=== PATIENT | male | born 1995 | race Caucasian/White ===

== ENCOUNTER 2016-08-10 21:49 | Emergency (ER) | payer SELFPAY ==
[2016-08-11] MEDS ORDERED: DIPHENHYDRAMINE HCL 50 MG/ML VIAL IV ONE (01:36)
[2016-08-11] MEDS ORDERED: PROCHLORPERAZINE EDISYLATE INJ 10 MG/2 ML VIAL IV ONE (01:36)
[2016-08-11] MEDS ORDERED: NORMAL SALINE 1000 ML 1,000 ML IV ONE (01:37)
--- NOTE | 2016-08-11 02:17 | ER Document Report ---
ED Headache - General Time seen by provider: 03:00 Mode of Arrival: Ambulatory Information source: Patient TRAVEL OUTSIDE OF THE [place] IN LAST 30 DAYS: No - HPI Patient complains to provider of: Headache Patient reports: Hx chronic headaches Onset: Other - see HPI Timing: Still present - General Chief Complaint: Headache Stated Complaint: HEADACHES Notes: Patient is a 21 year old male presenting to the emergency department complaining of a headache. Patient states he has had headaches that have been waxing and waning and sometimes everyday over the past 6 years. Patient states he takes ibuprofen and motrin for his headaches. Patient states his headache is in the front of his head, into his eyes, and is in the center of his neck. Patient states it is painful to move his neck sometimes. [facility]. Patient also has some nausea but denies any abdominal pain or other symptoms. 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 (VITALY VIVAR) - Related Data Allergies/Adverse Reactions: No Known Allergies Allergy (Unverified 08/10/16 22:57) Past Medical History - General Information source: Patient - Social History Smoking Status: Unknown if Ever Smoked Family History: None Patient has suicidal ideation: No Patient has homicidal ideation: No Musculoskeltal Medical History: Reports Other - bulging disc Review of Systems - Review of Systems Constitutional: No symptoms reported EENT: No symptoms reported Cardiovascular: No symptoms reported Respiratory: No symptoms reported Gastrointestinal: See HPI, Nausea. denies: Abdominal pain Genitourinary: No symptoms reported Male Genitourinary: No symptoms reported Musculoskeletal: No symptoms reported Skin: No symptoms reported Hematologic/Lymphatic: No symptoms reported Neurological/Psychological: See HPI, Headaches -: Yes All other systems reviewed and negative Physical Exam - Vital signs Interpretation: Normal - General General appearance: Appears well, Alert In distress: Mild - HEENT Head: Normocephalic, Atraumatic, Tenderness - tenderness to palpation to the base of the occiput, greater on the right than the left Eyes: Normal Pupils: PERRL Mucous membranes: Normal - Respiratory Respiratory status: No respiratory distress - Cardiovascular Rhythm: Regular Heart sounds: Normal auscultation - Abdominal Inspection: Normal Distension: No distension Bowel sounds: Normal Tenderness: Nontender Organomegaly: No organomegaly - Back Back: Normal, Nontender - Extremities General upper extremity: Normal inspection, Normal ROM, Normal strength General lower extremity: Normal inspection, Normal ROM, Normal strength - Neurological Neuro grossly intact: Yes Cognition: Normal Orientation: AAOx4 [place] Coma Scale Eye Opening: Spontaneous [place] Coma Scale Verbal: Oriented [place] Coma Scale Motor: Obeys Commands [place] Coma Scale Total: 15 Speech: Normal - Psychological Associated symptoms: Normal affect, Normal mood - Skin Skin Temperature: Warm Skin Moisture: Dry Course - Re-evaluation Re-evalutation: 08/11/16 Patient is a 21-year-old male who comes in complaining of headaches. Patient was initially amenable to a head CT and medication for his headache but then stated that he did not know if his insurance would pay for her he if he would have to pat a pocket. Patient was just like a prescription and and work note. Stable for discharge. Return if any worsening or concerning symptoms. (SORAYA NGUYEN) - Vital Signs Vital signs: Temp Pulse Resp BP Pulse Ox 97.7 F 57 L 16 114/61 98 08/11/16 03:26 08/11/16 03:26 08/11/16 03:26 08/11/16 03:26 08/11/16 03:26 Discharge - Discharge Clinical Impression: Headache Qualifiers: Headache type: unspecified Headache chronicity pattern: unspecified pattern Intractability: not intractable Qualified Code(s): R51 - Headache Condition: Stable Disposition: HOME, SELF-CARE Instructions: Headache ([facility]) Additional Instructions: Please follow-up with your Dr. regarding your recurring headaches, particularly for imaging. Prescriptions: Metoclopramide HCl [Reglan 10 mg Tablet] 1 - 2 tab PO ASDIR PRN #25 tablet PRN Reason: Ondansetron [Zofran Odt 4 mg Tablet] 1 - 2 tab PO Q4H PRN #15 tab.rapdis PRN Reason: For Nausea/Vomiting Forms: Return to Work Scribe Attestation: 08/11/16 05:35 I personally performed the services described in the documentation, reviewed and edited the documentation which was dictated to the scribe in my presence, and it accurately records my words and actions. (SORAYA NGUYEN) Scribe Documentation - Scribe Written by Scribe:: Dr. Nguyen ([facility])
[2016-08-11] MEDS ORDERED: ONDANSETRON ODT 4 MG TAB (6 TAB/DSPK) PO PRN (02:47)
[2016-08-11 03:41] VITALS: BP 114/61
== END 2016-08-11 03:30 | disposition home or self-care (01) ==
LOC: ER 21:49
DX: R51 Headache (principal); R11.0 Nausea
CPT/HCPCS: 99283

== ENCOUNTER 2017-06-10 16:00 | Emergency (ER) | payer OTHER ==
[2017-06-10 16:09] VITALS: BP 130/73
[2017-06-10] MEDS ORDERED: GUAIFENESIN 600 MG TABLET.SA PO ONE (17:08)
[2017-06-10] MEDS ORDERED: PSEUDOEPHEDRINE HCL 30 MG TABLET PO ONE (17:08)
[2017-06-10] MEDS ORDERED: IBUPROFEN 800 MG TABLET PO ONE (17:08)
[2017-06-10] MEDS ORDERED: LORATADINE 10 MG TABLET PO ONE (17:08)
--- NOTE | 2017-06-10 17:20 | ER Document Report ---
HPI - HPI Patient complains to provider of: Cough and cold symptoms congestion sore throat Onset: Yesterday Onset/Duration: Gradual Quality of pain: Achy, Other - Sore throat Severity: Moderate Pain Level: 3 Associated Symptoms: Chills, Earache, Rhinnorhea, Sinus pain/drainage, Sore throat, Other - Cough. denies: Headache Exacerbated by: Other - Cough Relieved by: Denies Similar symptoms previously: Yes Recently seen / treated by doctor: No - ROS ROS below otherwise negative: Yes - CONSTITUTIONAL Constitutional: REPORTS: Chills. DENIES: Fever - EENT EENT: REPORTS: Sore Throat, Ear Pain, Nasal Drainage-Clear, Congestion. DENIES : Eye problems - NEURO Neurology: DENIES: Headache, Weakness, Vision blurred, Dizzinesss / Vertigo - CARDIOVASCULAR Cardiovascular: DENIES: Chest pain - RESPIRATORY Respiratory: REPORTS: Coughing. DENIES: Trouble Breathing - GASTROINTESTINAL Gastrointestinal: DENIES: Abdominal Pain, Nausea, Patient vomiting, Diarrhea, Constipation, Black / Bloody Stools - URINARY Urinary: DENIES: Dysuria, Urgency, Frequency - MUSCULOSKELETAL Musculoskeletal: REPORTS: Back Pain - Body aches. DENIES: Extremity pain, Neck Pain, Swelling - DERM Skin Color: Normal Skin Problems: None Past Medical History - General Information source: Patient - Social History Smoking Status: Former Smoker Cigarette use (# per day): No Chew tobacco use (# tins/day): Yes - "dips" Smoking Education Provided: No Frequency of alcohol use: Social Drug Abuse: None Occupation: Due to Lives with: Alone Family History: CAD, COPD, DM, Hyperlipidemia, Hypertension. denies: CVA, Malignancy, Thyroid Disfunction Patient has suicidal ideation: No Patient has homicidal ideation: No - Past Medical History Cardiac Medical History: Reports: None Pulmonary Medical History: Reports: None EENT Medical History: Reports: None Neurological Medical History: Reports: None Endocrine Medical History: Reports: None Renal/ Medical History: Reports: None Malignancy Medical History: Reports None GI Medical History: Reports: None Musculoskeltal Medical History: Reports None Skin Medical History: Reports None Psychiatric Medical History: Reports: Hx Depression - anxiety Traumatic Medical History: Reports: None Past Surgical History: Reports: Hx Oral Surgery - wisdom teeth - Immunizations Hx Diphtheria, Pertussis, Tetanus Vaccination: Yes Vertical Provider Document - CONSTITUTIONAL Agree With Documented VS: Yes Exam Limitations: No Limitations General Appearance: WD/WN, No Apparent Distress - INFECTION CONTROL TRAVEL OUTSIDE OF THE [place] IN LAST 30 DAYS: No - HEENT HEENT: Atraumatic, Normocephalic, PERRLA Notes: Purulent nasal drainage with swelling to the nasal turbinates, postnasal drip, no tonsillar hypertrophy, and no exudates. - NECK Neck: Normal Inspection - RESPIRATORY Respiratory: Breath Sounds Normal, No Respiratory Distress. negative: Chest Non -Tender, Rales, Rhonchi, Wheezing O2 Sat by Pulse Oximetry: 97 - CARDIOVASCULAR Cardiovascular: Regular Rate, Regular Rhythm - MUSCULOSKELETAL/EXTREMETIES Musculoskeletal/Extremeties: MAEW, FROM, Non-Tender - NEURO Level of Consciousness: Awake, Alert, Appropriate Motor/Sensory: No Motor Deficit, No Sensory Deficit - DERM Integumentary: Warm, Dry, No Rash Course - Re-evaluation Re-evalutation: 06/10/17 17:54 This patient was treated with Claritin and Sudafed Mucinex and ibuprofen. He was given instructions on use of these at home for his cough and cold symptoms. Patient signs and symptoms were consistent with upper respiratory infection and he was instructed to follow-up with his primary doctor. - Vital Signs Vital signs: Temp Pulse Resp BP Pulse Ox 98.5 F 73 16 130/73 H 97 06/10/17 16:06 06/10/17 16:06 06/10/17 16:06 06/10/17 16:06 06/10/17 16:06 Discharge - Discharge Clinical Impression: URI (upper respiratory infection) Qualifiers: URI type: unspecified URI Qualified Code(s): J06.9 - Acute upper respiratory infection, unspecified Condition: Stable Disposition: HOME, SELF-CARE Additional Instructions: UPPER RESPIRATORY ILLNESS: You have a viral infection of the respiratory passages -- a "cold." This common infection causes nasal congestion, drainage, and often sore throat and cough. It is highly contagious. The disease usually lasts about 10 to 14 days. There is no "cure" for the viral infection -- it must run its course. If there is a complication, such as bacterial infection in the nose, sinuses, middle ear, or bronchial tubes, antibiotics may be required. The antibiotics won't affect the virus. Drink plenty of fluids. A humidifier may help. An expectorant medication or decongestant may make you more comfortable. Use acetaminophen or ibuprofen for fever or aches. See the doctor if fever persists over two days, if there is any significant worsening of your symptoms, or if you simply fail to improve as expected. Claritin and Sudafed Mucinex and ibuprofen given in the emergency room. These are all nhas-zhe-nduiljd medications that she can buy at the pharmacist. They stated that she will actually have to ask the pharmacist for the medication. DECONGESTANT MEDICATION: A decongestant medicine has been prescribed. Often this medicine is combined in the same tablet with an antihistamine or expectorant. This type of medicine is helpful in treating a bad cold or sinus condition, as well as in treatment of the nasal congestion of hay fever. It is not of much benefit for lung infections. Decongestant medicines are related to stimulants. They can cause an increase in blood pressure and heart rate. Persons with heart disease and high blood pressure should not take decongestants without discussing this with the physician. If you develop palpitations, chest pain, headache, or tremors, stop the medicine and consult your physician. COUGH-SUPPRESSANT & EXPECTORANT MEDICATION: You are to use a cough medication as needed for relief of symptoms. This medicine is a combination of an expectorant (to make the mucous thinner and more easily "coughed up") and a cough suppressant (to reduce the frequency of coughing). The cough-suppressant medicine is related to narcotics. You may experience mild nausea and sleepiness. Some patients who are very sensitive to narcotics may have stomach pain from this medicine. Taking the medicine with food reduces these side effects. Do not drive or work with machinery until you know how this medicine affects you. The expectorant should have no side effects. Iodine-containing expectorants (such as organidin) should not be taken by persons with active thyroid disease unless approved by your doctor. Call the doctor if you develop shortness of breath, hives, rash, itching, lightheadedness, or severe nausea and vomiting USE OF ACETAMINOPHEN (Tylenol): Acetaminophen may be taken for pain relief or fever control. It's much safer than aspirin, offering a wider range of "safe" dosages. It is safe during . Some brand names are Tylenol, Panadol, Datril, Anacin 3, Tempra, and Liquiprin. Acetaminophen can be repeated every four hours. The following are maximum recommended dosages: >89 pounds or adults 650 mg to 900 mg Acetaminophen can be repeated every four hours. Maximum dose not to exceed 4000 mg a day. Salt and soda solution 1 quart of water 1 tablespoon of salt 1 teaspoon of baking soda Mixed 3 ingredients together and boil for 1 minute Placed in a covered quart jar Use 1/2 ounce of cold solution to gargle 3 times a day FOLLOW-UP CARE: If you have been referred to a physician for follow-up care, call the physician s office for an appointment as you were instructed or within the next two days. If you experience worsening or a significant change in your symptoms, notify the physician immediately or return to the Emergency Department at any time for re-evaluation. [facility] in symptoms or concerns. Forms: Elevated Blood Pressure
== END 2017-06-10 17:21 | disposition home or self-care (01) ==
LOC: ER 16:00
DX: J02.9 Acute pharyngitis, unspecified (principal); R05 Cough; R68.83 Chills (without fever); J34.89 Other specified disorders of nose and nasal sinuses; H92.09 Otalgia, unspecified ear; R09.82 Postnasal drip; M54.9 Dorsalgia, unspecified; Z72.0 Tobacco use
CPT/HCPCS: 99283

== ENCOUNTER 2017-09-06 17:51 | Emergency (ER) | payer OTHER ==
[2017-09-06] MEDS ORDERED: KETOROLAC TROMETHAMINE INJ/PF 30 MG/1 ML SDV IM ONE (18:14)
--- NOTE | 2017-09-06 18:20 | ER Document Report ---
HPI - HPI Pain Level: 4 Notes: Patient is a 22-year-old male with no significant past medical history presents ED complaining of right shoulder pain status post injury yesterday while playing football. Patient states that he was making a tackle when he fell and landed on an outstretched arm. Patient states that he heard a pop in his shoulder. Patient states that he has had difficulty with abduction and flexion at the shoulder since then. Patient has not noticed any bruising or swelling otherwise. He has not had any numbness or tingling. Denies any drug allergies. Denies any IV drug use. Denies any headache, fever, head injury, neck pain, changes in vision/speech/mentation/hearing, URI, sore throat, chest pain, palpitations, syncope, cough, shortness of breath, wheeze, dyspnea, abdominal pain, nausea/vomiting/diarrhea, urinary retention, dysuria, hematuria , loss of control of bowel or bladder, numbness/tingling, muscle paralysis/ weakness, or rash. - ROS Systems Reviewed and Negative: Yes All other systems reviewed and negative Past Medical History - Social History Smoking Status: Never Smoker Family History: CAD, COPD, DM, Hyperlipidemia, Hypertension. denies: CVA, Malignancy, Thyroid Disfunction Renal/ Medical History: Denies: Hx Peritoneal Dialysis Psychiatric Medical History: Reports: Hx Depression - anxiety Past Surgical History: Reports: Hx Oral Surgery - wisdom teeth - Immunizations Hx Diphtheria, Pertussis, Tetanus Vaccination: Yes Vertical Provider Document - CONSTITUTIONAL Agree With Documented VS: Yes Notes: PHYSICAL EXAMINATION: GENERAL: Well-appearing, well-nourished and in no acute distress. A&Ox4 NECK: Normal range of motion, supple without lymphadenopathy. No rigidity. No midline tenderness. Spurling negative. LUNGS: Breath sounds clear to auscultation bilaterally and equal. No wheezes rales or rhonchi. HEART: Regular rate and rhythm without murmurs, rubs, gallops. Musculoskeletal: Rt shoulder: LROM to passive/active. Strength 4+/5. No deficits noted. + mild tenderness to the anterolateral shoulder. + mild deficits noted to the RC cuff with resisted empty can, internal/external rotation. N/V intact distal. Back: FROM to passive/active. Strength 5+/5. No vertebral point tenderness, stepoffs, or deformities. No other bony tenderness or ecchymosis. Extremities: No cyanosis, clubbing, or edema b/l. Peripheral pulses 2+. Capillary refill less than 2 seconds. NEUROLOGICAL: Normal speech, normal gait. Normal sensory, motor exams. Reflexes 2+ b/l. PSYCH: Normal mood, normal affect. SKIN: Warm, Dry, normal turgor, no rashes or lesions noted. - INFECTION CONTROL TRAVEL OUTSIDE OF THE [place] IN LAST 30 DAYS: No - RESPIRATORY O2 Sat by Pulse Oximetry: 96 Course - Re-evaluation Re-evalutation: 09/06/17 18:39 Patient is an afebrile, well-hydrated, 22-year-old male who presents the ED with acute right shoulder pain, suspect possible internal involvement. Vitals are stable. PE is otherwise unremarkable for any neurovascular compress, obvious tendon/ligament rupture, obvious fracture/dislocation, septic joint. See x-ray result which was unremarkable for any acute pathology. Toradol given today. Patient was requesting a narcotic medication for his pain, which I told him is not warranted at this time based on H&P, and without objective findings. Patient verbalized understanding to this. Recommend he consult with orthopedics and schedule an appointment for further evaluation and management. Recheck with your PCM in 1 week as well. Return to the ED with any worsening/ concerning symptoms otherwise as reviewed discharge. Sling was provided today. Patient is in agreement. - Vital Signs Vital signs: Temp Pulse Resp BP Pulse Ox 99.3 F 97 125/79 96 09/06/17 17:55 09/06/17 17:55 09/06/17 17:55 09/06/17 17:55 Discharge - Discharge Clinical Impression: Right shoulder pain Qualifiers: Chronicity: acute Qualified Code(s): M25.511 - Pain in right shoulder Condition: Stable Disposition: HOME, SELF-CARE Instructions: Exercise Program for the Shoulder ([facility]), Shoulder Injury ([facility]), Temporary Sling ([facility]) Additional Instructions: Rest, Ice, Compression, Elevation Use sling as directed Tylenol/ibuprofen as needed Light stretches daily Strength exercises as able Moist heat and massage may help F/u with your PCP in 3-5 days for a recheck Call and schedule an appointment with orthopedics for further evaluation and management, consider consult with physical therapy as well. Return to the ED with any worsening symptoms and/or development of fever, headache, chest pain, palpitations, syncope, shortness of breath, trouble breathing, abdominal pain, n/v/d, muscle weakness/paralysis, numbness/tingling, swelling, redness, or other worsening symptoms that are concerning to you. Prescriptions: Naproxen 500 mg PO BID PRN #30 tablet PRN Reason: Referrals: [facility] ([facility]) [Provider Group] - Follow up as needed
--- NOTE | 2017-09-06 18:35 | RADIOLOGY REPORT (SQ) ---
EXAM DESCRIPTION: SHOULDER RIGHT 2 OR MORE VIEWS COMPLETED DATE/TIME: 09/06/2017 6:26 pm REASON FOR STUDY: right shoulder pain COMPARISON: None. NUMBER OF VIEWS: Three views. TECHNIQUE: Internal rotation, external rotation, and Y view images acquired of the right shoulder. LIMITATIONS: None. FINDINGS: MINERALIZATION: Normal. BONES: No acute fracture or dislocation. No worrisome bone lesions. JOINTS: No dislocation. VISUALIZED LUNGS AND RIBS: No pneumothorax. No rib fracture. SOFT TISSUES: No radiopaque foreign body. OTHER: No other significant finding. IMPRESSION: NEGATIVE STUDY OF THE RIGHT SHOULDER. NO RADIOGRAPHIC EVIDENCE OF ACUTE INJURY. TECHNICAL DOCUMENTATION: JOB ID: [id number] [employer]- All Rights Reserved
[2017-09-06 19:10] VITALS: BP 115/65
== END 2017-09-06 19:15 | disposition home or self-care (01) ==
LOC: ER 17:51
DX: M25.511 Pain in right shoulder (principal)
CPT/HCPCS: 99283; 96372; 73030; J1885

== ENCOUNTER → 2018-01-05 | Day surgery (SDC) | payer OTHER ==
--- NOTE | 2018-01-05 10:33 | RADIOLOGY REPORT (SQ) ---
EXAM DESCRIPTION: ARTHRO SHOULDER INJECTION COMPLETED DATE/TIME: 01/05/2018 10:20 am REASON FOR STUDY: SUPERIOR GLENOID LABRUM LESION OF RIGHT SHOULDER, INIT S43.431A SUPERIOR GLENOID LABRUM LESION OF RIGHT SHOULDER, I COMPARISON: None. FLUOROSCOPY TIME: 0.1 minutes 1 images saved to PACS. LIMITATIONS: None. PROCEDURE: Procedure, risks, benefits and alternatives explained to patient who then gave written co nsent. The right shoulder was marked and a time out was called for correct procedure verification. P osterior entry site marked using fluoroscopic guidance. Shoulder prepped and draped using sterile te chnique. Local anesthesia achieved using 1% lidocaine injection. Hypodermic needle introduced into the joint space under direct fluoroscopic visualization. Non-ionic contrast instilled to confirm intr a-articular position. Dilute gadolinium solution then injected. Needle removed and entry site covere d with sterile bandage. No immediate complications noted. TECHNIQUE: Digital images acquired during fluoroscopy and stored on PACS. Patient immediately take n to the MR suite for additional imaging. INJECTION LOCATION: Posterior CONTRAST TYPE AND AMOUNT: 12 mL ProHance solution IMPRESSION: SUCCESSFUL NEEDLE PLACEMENT AND INJECTION FOR right SHOULDER MR ARTHROGRAM USING POSTERI OR APPROACH. COMMENT: Quality ID [id number]: Final reports for procedures using fluoroscopy that document radiation exp osure indices, or exposure time and number of fluorographic images (if radiation exposure indices are not available) TECHNICAL DOCUMENTATION: JOB ID: [id number] [employer]- All Rights Reserved Reading location - IP/workstation name: [facility]
--- NOTE | 2018-01-05 10:34 | RADIOLOGY REPORT (SQ) ---
EXAM DESCRIPTION: FLUORO/NEEDLE PLACEMENT COMPLETE DATE/TIME: 01/05/2018 10:20 am REASON FOR STUDY: SUPERIOR GLENOID LABRUM LESION OF RIGHT SHOULDER, INIT S43.431A SUPERIOR GLENOID LABRUM LESION OF RIGHT SHOULDER, I FINDINGS: Please see combined report for performance of procedure and radiologic supervision and int erpretation. IMPRESSION: Please see combined report for performance of procedure and radiologic supervision and i nterpretation. Reading location - IP/workstation name: [email or web address]
--- NOTE | 2018-01-05 14:12 | RADIOLOGY REPORT (SQ) ---
EXAM DESCRIPTION: MRI RT UPPER JOINT WITH COMPLETED DATE/TIME: 01/05/2018 11:32 am REASON FOR STUDY: SUPERIOR GLENOID LABRUM LESION OF RIGHT SHOULDER, INIT S43.431A SUPERIOR GLENOID LABRUM LESION OF RIGHT SHOULDER, I COMPARISON: Plain radiograph TECHNIQUE: Right shoulder images acquired and stored on PACS. Oblique coronal, oblique sagittal, and axial imaging to include fat sensitive sequences as T1, water sensitive sequences as FST2/STIR, and contrast sensitive sequences as FST1. LIMITATIONS: None. FINDINGS: JOINT DISTENTION: Adequate distention for interpretation. BONE MARROW AND CORTEX: Normal. No significant osteophytes. No edema or defects. AC JOINT: Type II acromion. No significant AC joint arthropathy. GLENOHUMERAL JOINT: No subluxation or dislocation. No focal chondral defects or reactive bone changes . ROTATOR CUFF: Minimal articular surface fraying of the supraspinatus. No full thickness LABRUM AND BICEPS LABRAL COMPLEX: Normal signal in the rotator interval without tear of the superior glenohumeral ligament. Superior labrum, intra-articular long head biceps intact. Mild tendinopathy distally. Distal biceps in normal anatomic location in bicipital groove. No paralabral cysts. INFERIOR LABRAL COMPLEX: Bony glenoid and labrum intact. IGHL intact without thickening or tear. No p aralabral cysts. ADJACENT SOFT TISSUES: No masses or nodes. OTHER: No other significant finding. IMPRESSION: Minimal articular surface partial tear of the supraspinatus. Mild biceps tendinopathy. TECHNICAL DOCUMENTATION: JOB ID: [id number] [employer]- All Rights Reserved Reading location - IP/workstation name: [email or web address]
== END ==
LOC: RAD 09:27
PROVIDERS: ATTEND Orthopaedic Surgery
DX: S43.431A Superior glenoid labrum lesion of right shoulder, initial encounter (principal); X58.XXXA Exposure to other specified factors, initial encounter
CPT/HCPCS: 73222; 77002; 23350; A9576

== ENCOUNTER 2019-01-26 19:11 | Emergency (ER) | payer OTHER ==
[2019-01-26] MEDS ORDERED: DIPH/PERTUSS(ACELL)/TETANUS VAC/PF 0.5 ML SYR (>=10YO) IM ONE (19:23)
--- NOTE | 2019-01-26 19:25 | ER Document Report ---
ED Medical Screen (RME) - General Chief Complaint: Laceration Stated Complaint: HEEL LACERATION Time Seen by Provider: 01/26/19 19:20 Primary Care Provider: MANUELA AZAR MD [Primary Care Provider] - Follow up as needed Mode of Arrival: Ambulatory Information source: Patient Notes: Patient presents emergency department with laceration to the bottom of his right foot. Patient reports he was standing on a glass table, the glass broke and he cut his foot. Is not sure when his last tetanus was. Foot was wrapped pivot. Nurse reports round flap of the skin deep laceration. Good cap refill. I have greeted and performed a rapid initial assessment of this patient. A comprehensive ED assessment and evaluation of the patient, analysis of test results and completion of the medical decision making process will be conducted by additional ED providers. Dictation of this chart was performed using voice recognition software; therefore, there may be some unintended grammatical errors. TRAVEL OUTSIDE OF THE [place] IN LAST 30 DAYS: No - Related Data Allergies/Adverse Reactions: No Known Allergies Allergy (Verified 01/26/19 19:20) Past Medical History Renal/ Medical History: Denies: Hx Peritoneal Dialysis Psychiatric Medical History: Reports: Hx Depression - anxiety Past Surgical History: Reports: Hx Oral Surgery - wisdom teeth - Immunizations Hx Diphtheria, Pertussis, Tetanus Vaccination: Yes History of Influenza Vaccine for 04/2017 - 09/2017 Season: No Physical Exam - Vital signs Vitals: Temp Pulse Resp BP Pulse Ox 98.6 F 78 16 140/91 H 97 01/26/19 19:15 01/26/19 19:15 01/26/19 19:15 01/26/19 19:15 01/26/19 19:15 Course - Vital Signs Vital signs: Temp Pulse Resp BP Pulse Ox 98.6 F 78 16 140/91 H 97 01/26/19 19:15 01/26/19 19:15 01/26/19 19:15 01/26/19 19:15 01/26/19 19:15 Doctor's Discharge - Discharge Referrals: MANUELA AZAR MD [Primary Care Provider] - Follow up as needed
--- NOTE | 2019-01-26 19:52 | RADIOLOGY REPORT (SQ) ---
EXAM DESCRIPTION: FOOT RIGHT COMPLETE COMPLETED DATE/TIME: 01/26/2019 7:38 pm REASON FOR STUDY: laceration COMPARISON: None. NUMBER OF VIEWS: Three views. TECHNIQUE: AP, lateral and oblique radiographic images acquired of the right foot. LIMITATIONS: None. FINDINGS: MINERALIZATION: Normal. BONES: No acute fracture or dislocation. No worrisome bone lesions. JOINTS: No effusions. SOFT TISSUES: No soft tissue swelling. No foreign body. OTHER: No other significant finding. IMPRESSION: No fracture or dislocation of the right foot. No radiopaque foreign body identified. P lease note that non automotive glass is typically not radiodense. TECHNICAL DOCUMENTATION: JOB ID: [id number] [place] [employer]- All Rights Reserved Reading location - IP/workstation name: [email or web address]
[2019-01-26] MEDS ORDERED: LIDOCAINE 1%/EPINEPHRINE INJ 20 ML VIAL INJ ONE (22:17)
--- NOTE | 2019-01-26 22:20 | ER Document Report ---
ED General - General Chief Complaint: Laceration Stated Complaint: HEEL LACERATION Time Seen by Provider: 01/26/19 19:20 Primary Care Provider: JARROD FINNEY [Primary Care Provider] - Follow up as needed Mode of Arrival: Ambulatory Notes: Patient is a 23-year-old male that presents to the emergency department for chief complaint of right foot laceration. Patient states that around 7 PM he was standing on a table, and a portion of the tables made in a glass, and his foot went through and the port was put back up and cut the outside of his right heel. He denies any other injuries, denies falling or hitting his head. He is not sure when his last tetanus was. He currently rates his pain as a 1 out of 10 describes as an ache in that area. He denies not have any pain related to the ankle, and denies any numbness, tingling or weakness distal to his injury. Denies any excessive or pulsatile bleeding. Past Medical History: Denies chronic medical conditions Past Surgical History: Denies major surgical history Social History: Vapes nicotine, and she was tobacco, occasional alcohol use, denies illicit drug use. Family History: Reviewed and noncontributory for presenting illness Allergies: Reviewed, see documented allergy list. REVIEW OF SYSTEMS: Other than noted above, the 12 point review of systems was reviewed with the patient and were negative, all pertinent findings are included in the HPI. PHYSICAL EXAMINATION: Vital signs reviewed, nursing noted reviewed. GENERAL: Well-appearing, well-nourished and in no acute distress. HEAD: Atraumatic, normocephalic. EYES: Eyes appear normal, sclera anicteric, conjunctiva are normal. ENT: Moist mucous membranes. NECK: Normal range of motion, supple without lymphadenopathy LUNGS: Breath sounds clear to auscultation bilaterally and equal. No wheezes rales or rhonchi. HEART: Regular rate and rhythm without murmurs EXTREMITIES: The right lateral heel has a curvilinear laceration measuring approximately 2 and half centimeters, with a flap, there is no active bleeding at this time, mild tenderness to palpation to the area, the ankle is otherwise unremarkable, Achilles tendon intact, and uninjured, cap refill intact in all digits distally, sensation and motor intact distally moving all toes. The rest the patient's extremity exam is grossly unremarkable. NEUROLOGICAL: No focal neurological deficits. Moves all extremities spontaneously Motor and sensory grossly intact on exam. PSYCH: Normal mood, normal affect. SKIN: Warm, Dry, normal turgor, no rashes or lesions noted on exposed skin TRAVEL OUTSIDE OF THE [place] IN LAST 30 DAYS: No - Related Data Allergies/Adverse Reactions: No Known Allergies Allergy (Verified 01/26/19 19:20) Past Medical History - General Information source: Patient - Social History Smoking Status: Current Every Day Smoker Family History: CAD, COPD, DM, Hyperlipidemia, Hypertension. denies: CVA, Malignancy, Thyroid Disfunction Patient has suicidal ideation: No Patient has homicidal ideation: No Renal/ Medical History: Denies: Hx Peritoneal Dialysis Psychiatric Medical History: Reports: Hx Depression - anxiety Past Surgical History: Reports: Hx Oral Surgery - wisdom teeth - Immunizations Hx Diphtheria, Pertussis, Tetanus Vaccination: Yes Physical Exam - Vital signs Vitals: Temp Pulse Resp BP Pulse Ox 98.6 F 78 16 140/91 H 97 01/26/19 19:15 01/26/19 19:15 01/26/19 19:15 01/26/19 19:15 01/26/19 19:15 Course - Re-evaluation Re-evalutation: Patient seen and examined vital signs reviewed. Patient was evaluated and treated as appropriate for the patient's presenting symptoms and complaint, with consideration of any critical or life threatening conditions that may be associated with their obtained history and exam as noted above. Patient was treated with suture repair as described above, x-ray obtained by triage was negative for foreign body, nor was her presence of foreign body on close examination The patient was re-evaluated and was stable Evaluation was most consistent with right foot laceration, patient discharged advised to follow-up in 8 to 10 days to have his sutures evaluated and possibly removed, patient agreed with plan of care and discharged home. He was updated on his tetanus vaccination while in the ED today. Plan of care was discussed with the patient at this point, after careful consideration I feel that that patient can be discharged from the emergency department, the patient was educated treatments and reasons to return to the emergency department based on their presumed diagnosis as noted above, they were advised to followup with a primary care physician in 2-3 days. Patient was agreeable to plan of care. *Note is created using voice recognition software and may contain spelling, syntax or grammatical errors. Foot X-Ray 01/26/19 19:23 IMPRESSION: No fracture or dislocation of the right foot. No radiopaque foreign body identified. Please note that non automotive glass is typically not radiodense. - Vital Signs Vital signs: Temp Pulse Resp BP Pulse Ox 98.4 F 73 16 144/83 H 97 01/26/19 23:11 01/26/19 23:11 01/26/19 23:11 01/26/19 23:11 01/26/19 23:11 Procedures - Laceration/Wound Repair Right Foot Wound length (cm): 2.5 Wound's Depth, Shape: Into muscle, Irregular, Other Laceration pre-procedure: Sterile PPE donned, Sterile drapes applied, Shur-Clens applied Anesthetic type: 1% Lidocaine w/epi Volume Anesthetic (mLs): 2 Wound explored: No foreign body removed, Contaminated Irrigated w/ Saline (mLs): 150 Wound Repaired With: Sutures Suture Size/Type: 4:0 Number of Sutures: 7 Layer Closure?: No Post-procedure wound care: Sterile dressing applied Post-procedure NV exam normal: Yes Complications: No Notes: Wound was irrigated, and repaired as described and patient tolerated well. Discharge - Discharge Clinical Impression: Laceration of heel Qualifiers: Encounter type: initial encounter Laterality: right Qualified Code(s): S91.311A - Laceration without foreign body, right foot, initial encounter Condition: Stable Disposition: HOME, SELF-CARE Instructions: Laceration Care ([facility]), Prophylactic Antibiotic ([facility]) Additional Instructions: Please return to the emergency department in 8 to 10 days to have your sutures removed, please monitor for signs of infection such as pus drainage, redness streaking up your leg, or development of fever. Please take the prescribed antibiotics for the next 5 days to help prevent infection. Keep the area clean and dry, do not scrub the area if you do get it wet, make sure you get a drive by padding the area. Use soap and water to clean. Prescriptions: Amox Tr/Potassium Clavulanate [Augmentin 875-125 Tablet] 1 tab PO BID 5 Days #10 tablet Referrals: [facility] [Primary Care Provider] - Follow up as needed
[2019-01-26 23:15] VITALS: BP 144/83
== END 2019-01-26 23:15 | disposition home or self-care (01) ==
LOC: ER 19:11
PROC: 0HQMXZZ Repair Right Foot Skin, External Approach (ICD-10-PCS; principal; 2019-01-26)
DX: S91.311A Laceration without foreign body, right foot, initial encounter (principal); W25.XXXA Contact with sharp glass, initial encounter; F17.290 Nicotine dependence, other tobacco product, uncomplicated
CPT/HCPCS: 99283; 90471; 73630; 90715; 12001; J3490

== ENCOUNTER → 2019-05-23 | Outpatient (CLI) | payer OTHER ==
--- NOTE | 2019-05-28 09:54 | RADIOLOGY REPORT (SQ) ---
EXAM DESCRIPTION: MRI LUMBAR SPINE WITHOUT COMPLETED DATE/TIME: 05/23/2019 2:21 pm REASON FOR STUDY: LOW BACK PAIN M54.5 LOW BACK PAIN COMPARISON: None. TECHNIQUE: Sagittal and Axial imaging includes T1, T2, STIR and gradient echo sequences. Coronal T2/ HASTE imaging. LIMITATIONS: None. FINDINGS: VISUALIZED UPPER ABDOMEN: No abnormality. SEGMENTATION: There are 5 lumbar-type vertebral bodies. There is no transitional anatomy at the lumb osacral junction. ALIGNMENT: Anatomic. VERTEBRAE: The lumbar vertebral body heights are preserved. There is no fracture. BONE MARROW: No pathologic marrow signal abnormality. DISC SIGNAL: The L5-S1 intervertebral disc space is desiccated. POSTERIOR ELEMENTS: Intact. There is no pars interarticularis defect. HARDWARE: None in the spine. CORD AND CONUS: The conus medullaris terminates at the level of L1 and it is normal in caliber and si gnal intensity. SOFT TISSUES: No pre or paravertebral soft tissue abnormality. L1-L2: No spinal or foraminal stenosis. L2-L3: No spinal or foraminal stenosis. L3-L4: No spinal or foraminal stenosis. L4-L5: Mild disc bulge that encroaches on the inferior aspect of the neuroforamina without mass effec t on the nerve roots. There is no spinal or foraminal stenosis at L4-5. L5-S1: Eccentric disc protrusion on the left with a probable annular tear that abuts the left S1 nerv e root and encroaches on the inferior aspect of the left neuroforamen without mass effect on the left L5 nerve root, and increased T2 signal within the facet joints. The combination of the SI joint art hropathy and eccentric disc protrusion results in mild to moderate foraminal stenosis on the left. LOWER THORACIC: No stenosis. SACRUM: Intact. OTHER: No other findings. IMPRESSION: Eccentric disc protrusion at L5-S1 on the left with a probable annular tear that abuts t he left S1 nerve root and encroaches on the inferior aspect of the left neural foramen without mass e ffect on the left L5 nerve root. 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 TECHNICAL DOCUMENTATION: JOB ID: [id number]- All Rights Reserved Reading location - IP/workstation name: [email or web address]
== END ==
LOC: RAD 13:15
PROVIDERS: ATTEND Nurse Practitioner Family
DX: M51.27 Other intervertebral disc displacement, lumbosacral region (principal)
CPT/HCPCS: 72148